=== PATIENT | female | born 1955 | race African-American/Black ===

== ENCOUNTER 2020-10-02 22:06 | Inpatient (IN) | payer MEDICAID, OTHER ==
[~2020-10-02] VITALS: Ht 167.6 cm; Wt 69.9 kg
[~2020-10-02 22:06] MED LIST: AMLO10TA4 PO; ASCO500C6 PO; CLAR10 PO; CLIN300C12 PO; DIAZ10TA PO; DOCU-138 PO; FERR-63 PO; GABA-529 PO; HYDR-523 PO; LORA10TA7 PO; LOSA50TA3 PO; LOV40 SUBCUT; METO-385 PO; MULT-1146 PO; ONDA4TAB5 PO; TOPUD PO; flexeril PO; haldol PO
[2020-10-02] MEDS ORDERED: ACETAMINOPHEN 325MG TABLET PO ONE (22:30)
[2020-10-02 23:56] LABS: BASOPHILS % 0.1 % (0.0-2.0); EOSINOPHILS % 0.2 % (0.0-5.0); HEMOGLOBIN. 9.4 g/dL (12.0-16.0); INR 1.2; LYMPHOCYTES % 16.2 % (20.0-50.0); MEAN CORPUSCULAR HEMOGLOBIN 21.5 pg (28.0-32.0); MEAN CORPUSCULAR VOLUME 73.2 fL (81.0-99.0); MEAN PLATELET VOLUME 7.1 fl (7.4-10.4); MONOCYTES % 7.2 % (2.0-8.0); NEUTROPHILS % 76.3 % (40.0-76.0); PLATELET 916 x1000/uL (130-400); PROTHROMBIN TIME 12.3 sec (9.6-11.0); RED BLOOD CELL COUNT 4.37 mill/uL (4.2-5.4); RED CELL DISTRIBUTION WIDTH 17.8 % (11.6-14.6)
[2020-10-02 23:59] LABS: CHLORIDE 107 mEq/L (98-107)
[2020-10-03] MEDS ORDERED: SODIUM CHLORIDE 0.9% 1,000 ML IV ONE
[2020-10-03] MEDS ORDERED: HYDROCODONE/ACETAMINOPHEN 5/325MG TABLET PO ONE
[2020-10-03 00:55] LABS: CREATINE KINASE 321 IU/L (26-192)
[2020-10-03] MEDS ORDERED: POTASSIUM CHLORIDE 20MEQ TABLET SR PO ONE (01:30)
[2020-10-03] MEDS ORDERED: ONDANSETRON HCL 4MG/2ML INJ IV STA (01:32)
[2020-10-03] MEDS ORDERED: MORPHINE SULFATE 4 MG/ML CPJ (NOT FOR IM USE) IV STA (01:32)
[2020-10-03 04:00] VITALS: BP 125/53
[2020-10-03 04:19] LABS: CLARITY URINE CLEAR (CLEAR); COLOR URINE YELLOW (YELLOW); KETONES URINE 1+ (NEGATIVE); LEUKOCYTE ESTERASE URINE NEGATIVE (NEGATIVE); NITRITE URINE NEGATIVE (NEGATIVE); OCCULT BLOOD URINE NEGATIVE (NEGATIVE); PH URINE 6.5 (4.5-8.0); PROTEIN URINE TRACE (NEGATIVE); SPECIFIC GRAVITY URINE 1.022 (1.005-1.030)
[2020-10-03 04:30] VITALS: BP 125/53
[2020-10-03] MEDS ORDERED: HALOPERIDOL 5MG TABLET PO PRN (05:30)
[2020-10-03] MEDS ORDERED: HYDROCODONE/ACETAMINOPHEN 5/325MG TABLET PO PRN (05:30)
[2020-10-03] MEDS: SODIUM CHLORIDE 0.9% 1,000 ML IV SCH ×3 (06:18→22:00)
[2020-10-03 08:00] VITALS: BP 132/61
[2020-10-03] MEDS ORDERED: PNEUMOCOCCAL 23-VAL P-SAC VAC 0.5 ML IM ONE (08:00)
[2020-10-03 08:43] LABS: BASOPHILS % 0.3 % (0.0-2.0); EOSINOPHILS % 0.6 % (0.0-5.0); HEMATOCRIT. 26.3 % (36.0-48.0); LYMPHOCYTES % 19.4 % (20.0-50.0); MEAN CORPUSCULAR HEMOGLOBIN 22.5 pg (28.0-32.0); MEAN CORPUSCULAR VOLUME 73.6 fL (81.0-99.0); MEAN PLATELET VOLUME 6.6 fl (7.4-10.4); MONOCYTES % 10.3 % (2.0-8.0); NEUTROPHILS % 69.4 % (40.0-76.0); PLATELET 801 x1000/uL (130-400); RED BLOOD CELL COUNT 3.57 mill/uL (4.2-5.4); RED CELL DISTRIBUTION WIDTH 17.9 % (11.6-14.6)
[2020-10-03 08:56] LABS: CHLORIDE 111 mEq/L (98-107)
[2020-10-03] MEDS: LOSARTAN POTASSIUM 50 MG TABLET PO SCH (09:00)
[2020-10-03] MEDS: MULTIVITAMINS,THER W-MINERALS TABLET PO SCH (09:00)
[2020-10-03] MEDS ORDERED: CLINDAMYCIN HCL 150MG CAPSULE PO SCH (09:00)
[2020-10-03] MEDS: DOCUSATE SODIUM 100MG CAPSULE PO SCH (09:05)
[2020-10-03] MEDS: ASCORBIC ACID 500 MG TABLET PO SCH (09:05)
[2020-10-03] MEDS: FERROUS SULFATE 325MG TABLET PO SCH ×3 (09:05→17:14)
[2020-10-03] MEDS: GABAPENTIN 100MG CAPSULE PO SCH (09:06)
[2020-10-03] MEDS: AMLODIPINE 10MG TABLET PO SCH (09:06)
[2020-10-03] MEDS: CYCLOBENZAPRINE 10MG TABLET PO SCH (09:06)
[2020-10-03] MEDS: LORATADINE 10MG TABLET PO SCH (09:07)
[2020-10-03] MEDS: ONDANSETRON 4MG ODT PO PRN (11:02)
[2020-10-03] MEDS: MORPHINE SULFATE 2 MG/ML CPJ (NOT FOR IM USE) IV PRN ×3 (11:03→21:20)
[2020-10-03 12:00] VITALS: BP 117/51
[2020-10-03 16:00] VITALS: BP 125/67
[2020-10-03] MEDS: DOXYCYCLINE HYCLATE 100MG CAPSULE PO SCH (17:14)
[2020-10-03] MEDS: CALCIUM CARBONATE/VITAMIN D3 500MG TABLET PO SCH (17:14)
[2020-10-03] MEDS: CALCITONIN,SALMON, 3.7 ML NASAL SPRAY ONENSTRL SCH (18:53)
[2020-10-03 20:00] VITALS: BP 110/41
[2020-10-03] MEDS ORDERED: DIAZEPAM 5 MG TABLET PO PRN (21:00)
[2020-10-03] MEDS: ACETAMINOPHEN 325MG TABLET PO PRN (21:07)
[2020-10-04] VITALS: BP 110/45
[2020-10-04] MEDS: MORPHINE SULFATE 2 MG/ML CPJ (NOT FOR IM USE) IV PRN ×4 (01:22→19:57)
[2020-10-04] MEDS: ONDANSETRON 4MG ODT PO PRN (02:32)
[2020-10-04 04:00] VITALS: BP 119/58
[2020-10-04] MEDS: SODIUM CHLORIDE 0.9% 1,000 ML IV SCH ×2 (06:00→13:18)
[2020-10-04 07:01] LABS: BASOPHILS % 0.3 % (0.0-2.0); EOSINOPHILS % 1.9 % (0.0-5.0); HEMATOCRIT. 28.4 % (36.0-48.0); HEMOGLOBIN. 8.5 g/dL (12.0-16.0); LYMPHOCYTES % 21.6 % (20.0-50.0); MEAN CORPUSCULAR HEMOGLOBIN 22.3 pg (28.0-32.0); MEAN CORPUSCULAR VOLUME 74.5 fL (81.0-99.0); MONOCYTES % 12.5 % (2.0-8.0); NEUTROPHILS % 63.7 % (40.0-76.0); PLATELET 774 x1000/uL (130-400); RED BLOOD CELL COUNT 3.81 mill/uL (4.2-5.4); RED CELL DISTRIBUTION WIDTH 18.1 % (11.6-14.6)
[2020-10-04 07:18] LABS: CHLORIDE 108 mEq/L (98-107)
[2020-10-04 08:00] VITALS: BP 130/50
[2020-10-04] MEDS: CALCIUM CARBONATE/VITAMIN D3 500MG TABLET PO SCH ×2 (08:58→17:45)
[2020-10-04] MEDS: DOXYCYCLINE HYCLATE 100MG CAPSULE PO SCH ×2 (08:58→17:45)
[2020-10-04] MEDS: FERROUS SULFATE 325MG TABLET PO SCH ×3 (08:58→17:45)
[2020-10-04] MEDS: AMLODIPINE 10MG TABLET PO SCH (08:59)
[2020-10-04] MEDS: GABAPENTIN 100MG CAPSULE PO SCH (08:59)
[2020-10-04] MEDS: CYCLOBENZAPRINE 10MG TABLET PO SCH (08:59)
[2020-10-04] MEDS: ASCORBIC ACID 500 MG TABLET PO SCH (08:59)
[2020-10-04] MEDS: LORATADINE 10MG TABLET PO SCH (08:59)
[2020-10-04] MEDS: DOCUSATE SODIUM 100MG CAPSULE PO SCH (08:59)
[2020-10-04] MEDS: LOSARTAN POTASSIUM 50 MG TABLET PO SCH (09:00)
[2020-10-04] MEDS: CALCITONIN,SALMON, 3.7 ML NASAL SPRAY ONENSTRL SCH (09:00)
[2020-10-04] MEDS: MULTIVITAMINS,THER W-MINERALS TABLET PO SCH (09:02)
[2020-10-04 11:56] VITALS: BP 103/51
[2020-10-04] MEDS ORDERED: POTASSIUM CHLORIDE 20MEQ TABLET SR PO NR (12:45)
[2020-10-04 16:00] VITALS: BP 111/56
[2020-10-04 20:00] VITALS: BP 119/53
[2020-10-04] MEDS ORDERED: LACTULOSE 20G/30ML UDC PO SCH (22:00)
[2020-10-04] MEDS ORDERED: LACTULOSE 20G/30ML UDC PO PRN (22:45)
[2020-10-04] MEDS: HYDROCODONE/ACETAMINOPHEN 5/325MG TABLET PO PRN (22:45)
[2020-10-05] VITALS: BP 121/55
[2020-10-05] MEDS: MORPHINE SULFATE 2 MG/ML CPJ (NOT FOR IM USE) IV PRN ×3 (03:57→16:26)
[2020-10-05 04:00] VITALS: BP 125/54
[2020-10-05 06:34] LABS: CHLORIDE 105 mEq/L (98-107)
[2020-10-05] MEDS: HYDROCODONE/ACETAMINOPHEN 5/325MG TABLET PO PRN ×3 (07:00→20:59)
[2020-10-05 08:00] VITALS: BP 121/54
[2020-10-05] MEDS: CYCLOBENZAPRINE 10MG TABLET PO SCH (08:43)
[2020-10-05] MEDS: DOXYCYCLINE HYCLATE 100MG CAPSULE PO SCH ×2 (08:43→17:59)
[2020-10-05] MEDS: GABAPENTIN 100MG CAPSULE PO SCH (08:43)
[2020-10-05] MEDS: CALCITONIN,SALMON, 3.7 ML NASAL SPRAY ONENSTRL SCH (08:43)
[2020-10-05] MEDS: LOSARTAN POTASSIUM 50 MG TABLET PO SCH (08:44)
[2020-10-05] MEDS: LORATADINE 10MG TABLET PO SCH (08:44)
[2020-10-05] MEDS: AMLODIPINE 10MG TABLET PO SCH (08:44)
[2020-10-05] MEDS: DOCUSATE SODIUM 100MG CAPSULE PO SCH (08:44)
[2020-10-05] MEDS: ASCORBIC ACID 500 MG TABLET PO SCH (08:44)
[2020-10-05] MEDS: FERROUS SULFATE 325MG TABLET PO SCH ×3 (08:44→17:59)
[2020-10-05] MEDS: CALCIUM CARBONATE/VITAMIN D3 500MG TABLET PO SCH ×2 (08:44→17:59)
[2020-10-05] MEDS: MULTIVITAMINS,THER W-MINERALS TABLET PO SCH (08:45)
[2020-10-05 12:00] VITALS: BP 108/48
[2020-10-05 16:00] VITALS: BP 110/51
[2020-10-05] MEDS: DEXAMETHASONE 4MG/ML 1ML VIAL IV SCH (17:59)
[2020-10-05 20:00] VITALS: BP 119/53
[2020-10-06] VITALS (41 sets, daily range): BP systolic 69–163; BP diastolic 19–80
[2020-10-06] MEDS: MORPHINE SULFATE 2 MG/ML CPJ (NOT FOR IM USE) IV PRN (00:18)
[2020-10-06] MEDS: DEXAMETHASONE 4MG/ML 1ML VIAL IV SCH ×4 (00:18→17:41)
[2020-10-06] MEDS: HYDROCODONE/ACETAMINOPHEN 5/325MG TABLET PO PRN ×3 (04:09→21:51)
[2020-10-06 05:48] LABS: BASOPHILS % 0.2 % (0.0-2.0); HEMOGLOBIN. 8.4 g/dL (12.0-16.0); LYMPHOCYTES % 8.7 % (20.0-50.0); MEAN CORPUSCULAR HEMOGLOBIN 23.4 pg (28.0-32.0); MEAN CORPUSCULAR VOLUME 72.1 fL (81.0-99.0); MEAN PLATELET VOLUME 6.9 fl (7.4-10.4); MONOCYTES % 1.6 % (2.0-8.0); NEUTROPHILS % 89.5 % (40.0-76.0); PLATELET 737 x1000/uL (130-400); RED BLOOD CELL COUNT 3.61 mill/uL (4.2-5.4); RED CELL DISTRIBUTION WIDTH 17.7 % (11.6-14.6)
[2020-10-06 05:57] LABS: CHLORIDE 103 mEq/L (98-107)
[2020-10-06] MEDS ORDERED: THROMBIN (BOVINE) 5000 UNITS/VIAL TOP ONE ×2 (06:23→06:24)
[2020-10-06] MEDS ORDERED: BACITRACIN 50,000 UNITS/VIAL ONE (06:24)
[2020-10-06] MEDS ORDERED: ROCURONIUM BROMIDE 10MG/ML VIAL 5ML IV ONE (07:11)
[2020-10-06] MEDS ORDERED: PROPOFOL 200MG/20ML VIAL IV ONE ×2 (07:11→09:28)
[2020-10-06] MEDS ORDERED: MIDAZOLAM HCL 2 MG/2 ML VIAL ONE (07:11)
[2020-10-06] MEDS ORDERED: NEOSTIGMINE METHYLSULFATE 1MG/ML 10 ML VIAL ONE (07:11)
[2020-10-06] MEDS ORDERED: FENTANYL CITRATE/PF 50MCG/ML 2ML VIAL ONE (07:11)
[2020-10-06] MEDS ORDERED: GLYCOPYRROLATE 0.2 MG/ML 2ML VIAL ONE (07:12)
[2020-10-06] MEDS: FERROUS SULFATE 325MG TABLET PO SCH ×3 (07:50→16:13)
[2020-10-06] MEDS: LORATADINE 10MG TABLET PO SCH (08:17)
[2020-10-06] MEDS: DEXT 5%/LACTATED RINGERS 1,000 ML IV SCH ×2 (08:17→21:56)
[2020-10-06] MEDS: CALCITONIN,SALMON, 3.7 ML NASAL SPRAY ONENSTRL SCH (08:17)
[2020-10-06] MEDS: CALCIUM CARBONATE/VITAMIN D3 500MG TABLET PO SCH ×2 (08:18→16:13)
[2020-10-06] MEDS: CYCLOBENZAPRINE 10MG TABLET PO SCH (08:18)
[2020-10-06] MEDS: AMLODIPINE 10MG TABLET PO SCH (08:18)
[2020-10-06] MEDS: DOCUSATE SODIUM 100MG CAPSULE PO SCH (08:18)
[2020-10-06] MEDS: MULTIVITAMINS,THER W-MINERALS TABLET PO SCH (08:18)
[2020-10-06] MEDS: GABAPENTIN 100MG CAPSULE PO SCH (08:18)
[2020-10-06] MEDS: LOSARTAN POTASSIUM 50 MG TABLET PO SCH (08:18)
[2020-10-06] MEDS: ASCORBIC ACID 500 MG TABLET PO SCH (08:19)
[2020-10-06] MEDS: DOXYCYCLINE HYCLATE 100MG CAPSULE PO SCH ×2 (08:19→17:41)
[2020-10-06] MEDS ORDERED: DEXAMETHASONE 4MG/ML 1ML VIAL ONE (08:41)
[2020-10-06] MEDS ORDERED: HYDROMORPHONE HCL/PF 2MG/ML (OR) ONE (08:44)
[2020-10-06] MEDS ORDERED: HYDRALAZINE 20MG/ML VIAL ONE (09:45)
[2020-10-06] MEDS ORDERED: MEPERIDINE HCL/PF 25MG/ML CPJ IV PRN (09:45)
[2020-10-06] MEDS ORDERED: HYDROMORPHONE HCL/PF 2MG/ML CPJ IV PRN (09:45)
[2020-10-06] MEDS ORDERED: LABETALOL 5MG/ML SYR 20 MG/4 ML SYRINGE IV PRN (09:45)
[2020-10-06] MEDS ORDERED: LIDOCAINE HCL/PF 1% 10 MG/ML 5ML VIAL ONE (09:45)
[2020-10-06] MEDS ORDERED: ONDANSETRON HCL 4MG/2ML INJ IV PRN (09:45)
[2020-10-06] MEDS ORDERED: SODIUM CHLORIDE 0.9% 10ML VIAL ONE (09:46)
[2020-10-06] MEDS ORDERED: CEFAZOLIN SODIUM 1000MG/VIAL ONE (09:46)
[2020-10-06] MEDS ORDERED: LABETALOL HCL 5MG/ML VIAL 20ML IV ONE (09:46)
[2020-10-06] MEDS: MORPHINE SULFATE 4 MG/ML CPJ (NOT FOR IM USE) IV PRN (11:55)
[2020-10-06] MEDS ORDERED: ONDANSETRON INJ IV PRN (12:45)
[2020-10-06] MEDS ORDERED: DIPHENHYDRAMINE INJ IV PRN (12:45)
[2020-10-06] MEDS ORDERED: NALOXONE INJ IV PRN (12:45)
[2020-10-06] MEDS ORDERED: CEFAZOLIN SODIUM 1000MG/VIAL IV SCH (14:00)
[2020-10-06] MEDS: CEFAZOLIN 1000MG PREMIX 50 ML IV SCH ×2 (14:10→21:52)
[2020-10-06] MEDS: NICARDIPINE 100 MG in SODIUM CHLORIDE 0.9% 60 ML IV PRN (14:12)
[2020-10-07] VITALS (82 sets, daily range): BP systolic 69–227; BP diastolic 16–129
[2020-10-07] MEDS: DEXAMETHASONE 4MG/ML 1ML VIAL IV SCH ×4 (00:05→16:56)
[2020-10-07] MEDS: MORPHINE SULFATE 4 MG/ML CPJ (NOT FOR IM USE) IV PRN ×4 (00:06→12:59)
[2020-10-07] MEDS: HYDROCODONE/ACETAMINOPHEN 5/325MG TABLET PO PRN ×2 (02:43→20:15)
[2020-10-07 05:36] LABS: HEMATOCRIT. 23.2 % (36.0-48.0); HEMOGLOBIN. 7.4 g/dL (12.0-16.0); MEAN CORPUSCULAR HEMOGLOBIN 23.2 pg (28.0-32.0); MEAN CORPUSCULAR VOLUME 73.1 fL (81.0-99.0); MEAN PLATELET VOLUME 7.1 fl (7.4-10.4); PLATELET 744 x1000/uL (130-400); RED BLOOD CELL COUNT 3.17 mill/uL (4.2-5.4); RED CELL DISTRIBUTION WIDTH 17.5 % (11.6-14.6)
[2020-10-07 05:43] LABS: CHLORIDE 103 mEq/L (98-107)
[2020-10-07] MEDS: CEFAZOLIN 1000MG PREMIX 50 ML IV SCH ×3 (06:09→21:26)
[2020-10-07] MEDS: LORATADINE 10MG TABLET PO SCH (08:37)
[2020-10-07] MEDS: LOSARTAN POTASSIUM 50 MG TABLET PO SCH ×2 (08:37→09:00)
[2020-10-07] MEDS: AMLODIPINE 10MG TABLET PO SCH (08:37)
[2020-10-07] MEDS: DOCUSATE SODIUM 100MG CAPSULE PO SCH (08:37)
[2020-10-07] MEDS: CALCITONIN,SALMON, 3.7 ML NASAL SPRAY ONENSTRL SCH (08:38)
[2020-10-07] MEDS: CYCLOBENZAPRINE 10MG TABLET PO SCH (08:38)
[2020-10-07] MEDS: FERROUS SULFATE 325MG TABLET PO SCH ×3 (08:38→16:56)
[2020-10-07] MEDS: DOXYCYCLINE HYCLATE 100MG CAPSULE PO SCH ×2 (08:38→16:57)
[2020-10-07] MEDS: MULTIVITAMINS,THER W-MINERALS TABLET PO SCH (08:38)
[2020-10-07] MEDS: CALCIUM CARBONATE/VITAMIN D3 500MG TABLET PO SCH ×2 (08:38→16:56)
[2020-10-07] MEDS: DEXT 5%/LACTATED RINGERS 1,000 ML IV SCH ×2 (08:42→16:57)
[2020-10-07] MEDS: GABAPENTIN 100MG CAPSULE PO SCH (08:45)
[2020-10-07] MEDS: ASCORBIC ACID 500 MG TABLET PO SCH (08:45)
[2020-10-07 10:29] LABS: PLATELET ESTIMATE INCREASED
[2020-10-07] MEDS: HYDROMORPHONE PCA 10MG/50ML IV PRN (13:39)
[2020-10-08] VITALS (97 sets, daily range): BP systolic 64–157; BP diastolic 26–96
[2020-10-08] MEDS: DEXT 5%/LACTATED RINGERS 1,000 ML IV SCH ×3 (00:07→20:37)
[2020-10-08] MEDS: HYDROCODONE/ACETAMINOPHEN 5/325MG TABLET PO PRN ×5 (01:13→20:14)
[2020-10-08] MEDS: MORPHINE SULFATE 4 MG/ML CPJ (NOT FOR IM USE) IV PRN ×4 (02:53→18:14)
[2020-10-08] MEDS: NICARDIPINE 100 MG in SODIUM CHLORIDE 0.9% 60 ML IV PRN (06:03)
[2020-10-08] MEDS: CEFAZOLIN 1000MG PREMIX 50 ML IV SCH ×2 (06:03→13:52)
[2020-10-08] MEDS: FERROUS SULFATE 325MG TABLET PO SCH ×3 (07:58→16:08)
[2020-10-08] MEDS: MULTIVITAMINS,THER W-MINERALS TABLET PO SCH (09:33)
[2020-10-08] MEDS: CYCLOBENZAPRINE 10MG TABLET PO SCH (09:33)
[2020-10-08] MEDS: DOCUSATE SODIUM 100MG CAPSULE PO SCH (09:33)
[2020-10-08] MEDS: CALCIUM CARBONATE/VITAMIN D3 500MG TABLET PO SCH ×2 (09:34→16:08)
[2020-10-08] MEDS: LOSARTAN POTASSIUM 50 MG TABLET PO SCH (09:34)
[2020-10-08] MEDS: GABAPENTIN 100MG CAPSULE PO SCH (09:34)
[2020-10-08] MEDS: ASCORBIC ACID 500 MG TABLET PO SCH (09:34)
[2020-10-08] MEDS: AMLODIPINE 10MG TABLET PO SCH (09:34)
[2020-10-08] MEDS: LORATADINE 10MG TABLET PO SCH (09:34)
[2020-10-08] MEDS: DOXYCYCLINE HYCLATE 100MG CAPSULE PO SCH ×2 (09:35→16:08)
[2020-10-08] MEDS ORDERED: CLONIDINE 0.1MG TABLET PO PRN (10:30)
[2020-10-08] MEDS: CALCITONIN,SALMON, 3.7 ML NASAL SPRAY ONENSTRL SCH (13:44)
[2020-10-08] MEDS: HYDROMORPHONE PCA 10MG/50ML IV PRN (16:43)
[2020-10-09] VITALS (47 sets, daily range): BP systolic 92–162; BP diastolic 42–80
[2020-10-09] MEDS: DEXT 5%/LACTATED RINGERS 1,000 ML IV SCH (07:00)
[2020-10-09] MEDS: MULTIVITAMINS,THER W-MINERALS TABLET PO SCH (08:59)
[2020-10-09] MEDS: HYDROCODONE/ACETAMINOPHEN 5/325MG TABLET PO PRN ×3 (09:00→20:20)
[2020-10-09] MEDS: CYCLOBENZAPRINE 10MG TABLET PO SCH (09:00)
[2020-10-09] MEDS: LOSARTAN POTASSIUM 50 MG TABLET PO SCH (09:00)
[2020-10-09] MEDS: ASCORBIC ACID 500 MG TABLET PO SCH (09:01)
[2020-10-09] MEDS: AMLODIPINE 10MG TABLET PO SCH (09:01)
[2020-10-09] MEDS: LORATADINE 10MG TABLET PO SCH (09:01)
[2020-10-09] MEDS: FERROUS SULFATE 325MG TABLET PO SCH ×3 (09:01→18:23)
[2020-10-09] MEDS: GABAPENTIN 100MG CAPSULE PO SCH (09:01)
[2020-10-09] MEDS: CALCIUM CARBONATE/VITAMIN D3 500MG TABLET PO SCH ×2 (09:01→16:11)
[2020-10-09] MEDS: DOCUSATE SODIUM 100MG CAPSULE PO SCH (09:01)
[2020-10-09] MEDS: CALCITONIN,SALMON, 3.7 ML NASAL SPRAY ONENSTRL SCH (10:00)
[2020-10-09] MEDS ORDERED: MORPHINE SULFATE 2 MG/ML CPJ (NOT FOR IM USE) IV PRN (14:00)
[2020-10-09] MEDS: ACETAMINOPHEN 325MG TABLET PO PRN (18:23)
[2020-10-09] MEDS: MORPHINE SULFATE 2 MG/ML CPJ (NOT FOR IM USE) IV PRN (23:06)
[2020-10-10] VITALS: BP 105/48
[2020-10-10] MEDS: HYDROCODONE/ACETAMINOPHEN 5/325MG TABLET PO PRN ×5 (01:30→18:24)
[2020-10-10] MEDS: MORPHINE SULFATE 2 MG/ML CPJ (NOT FOR IM USE) IV PRN ×4 (03:13→21:32)
[2020-10-10 04:00] VITALS: BP 107/47
[2020-10-10 07:13] LABS: BASOPHILS % 0.2 % (0.0-2.0); EOSINOPHILS % 1.8 % (0.0-5.0); HEMATOCRIT. 26.6 % (36.0-48.0); HEMOGLOBIN. 8.3 g/dL (12.0-16.0); LYMPHOCYTES % 18.4 % (20.0-50.0); MEAN CORPUSCULAR HEMOGLOBIN 22.9 pg (28.0-32.0); MEAN CORPUSCULAR VOLUME 73.6 fL (81.0-99.0); MEAN PLATELET VOLUME 7.1 fl (7.4-10.4); MONOCYTES % 14.6 % (2.0-8.0); PLATELET 755 x1000/uL (130-400); RED BLOOD CELL COUNT 3.62 mill/uL (4.2-5.4); RED CELL DISTRIBUTION WIDTH 18.3 % (11.6-14.6)
[2020-10-10 08:00] VITALS: BP 110/56
[2020-10-10] MEDS: FERROUS SULFATE 325MG TABLET PO SCH ×3 (08:43→16:59)
[2020-10-10] MEDS: LORATADINE 10MG TABLET PO SCH (08:43)
[2020-10-10] MEDS: DOCUSATE SODIUM 100MG CAPSULE PO SCH (08:43)
[2020-10-10] MEDS: MULTIVITAMINS,THER W-MINERALS TABLET PO SCH (08:43)
[2020-10-10] MEDS: GABAPENTIN 100MG CAPSULE PO SCH (08:43)
[2020-10-10] MEDS: CYCLOBENZAPRINE 10MG TABLET PO SCH (08:43)
[2020-10-10] MEDS: CALCIUM CARBONATE/VITAMIN D3 500MG TABLET PO SCH ×2 (08:43→16:50)
[2020-10-10] MEDS: CALCITONIN,SALMON, 3.7 ML NASAL SPRAY ONENSTRL SCH (08:43)
[2020-10-10] MEDS: ASCORBIC ACID 500 MG TABLET PO SCH (08:43)
[2020-10-10] MEDS: AMLODIPINE 10MG TABLET PO SCH (09:00)
[2020-10-10] MEDS: LOSARTAN POTASSIUM 50 MG TABLET PO SCH (09:00)
[2020-10-10 14:07] VITALS: BP 102/52
[2020-10-10 16:00] VITALS: BP 109/69
[2020-10-10] MEDS: ACETAMINOPHEN 325MG TABLET PO PRN (16:51)
[2020-10-10 20:00] VITALS: BP 113/40
[2020-10-11] VITALS: BP 116/72
[2020-10-11 04:00] VITALS: BP 134/62
[2020-10-11] MEDS: MORPHINE SULFATE 2 MG/ML CPJ (NOT FOR IM USE) IV PRN ×3 (04:35→16:30)
[2020-10-11] MEDS: GABAPENTIN 100MG CAPSULE PO SCH (09:06)
[2020-10-11] MEDS: MULTIVITAMINS,THER W-MINERALS TABLET PO SCH (09:06)
[2020-10-11] MEDS: DOCUSATE SODIUM 100MG CAPSULE PO SCH (09:06)
[2020-10-11] MEDS: HYDROCODONE/ACETAMINOPHEN 5/325MG TABLET PO PRN ×2 (09:06→18:51)
[2020-10-11] MEDS: CALCIUM CARBONATE/VITAMIN D3 500MG TABLET PO SCH ×2 (09:06→16:57)
[2020-10-11] MEDS: CYCLOBENZAPRINE 10MG TABLET PO SCH (09:06)
[2020-10-11] MEDS: LOSARTAN POTASSIUM 50 MG TABLET PO SCH (09:07)
[2020-10-11] MEDS: ASCORBIC ACID 500 MG TABLET PO SCH (09:07)
[2020-10-11] MEDS: LORATADINE 10MG TABLET PO SCH (09:07)
[2020-10-11] MEDS: AMLODIPINE 10MG TABLET PO SCH (09:07)
[2020-10-11] MEDS: FERROUS SULFATE 325MG TABLET PO SCH ×3 (09:07→16:57)
[2020-10-11] MEDS: CALCITONIN,SALMON, 3.7 ML NASAL SPRAY ONENSTRL SCH (09:08)
[2020-10-11 16:00] VITALS: BP 134/78
[2020-10-11 17:07] VITALS: BP 127/74
[2020-10-11 18:51] VITALS: BP 134/74
== END 2020-10-11 19:07 | DRG 321 ==
LOC: ER 22:06 → 6EST 10-03 03:17 → ENRESERV 10-03 03:31 → MICUSO 10-06 11:51 → 6EST 10-09 12:00
PROVIDERS: ADMIT Internal Medicine; ATTEND Internal Medicine
PROC: 0RG20J1 Fusion of 2 or more Cervical Vertebral Joints with Synthetic Substitute, Posterior Approach, Posterior Column, Open Approach (ICD-10-PCS; principal; 2020-10-06)
PROC: 00NW0ZZ Release Cervical Spinal Cord, Open Approach (ICD-10-PCS; 2020-10-06)
DX: M48.02 Spinal stenosis, cervical region (principal); G82.50 Quadriplegia, unspecified; G99.2 Myelopathy in diseases classified elsewhere; M62.82 Rhabdomyolysis; S32.020A Wedge compression fracture of second lumbar vertebra, initial encounter for closed fracture; F20.9 Schizophrenia, unspecified; G62.9 Polyneuropathy, unspecified; M16.11 Unilateral primary osteoarthritis, right hip; M48.061 Spinal stenosis, lumbar region without neurogenic claudication; M54.12 Radiculopathy, cervical region; I10 Essential (primary) hypertension; E78.5 Hyperlipidemia, unspecified; E87.6 Hypokalemia; Z96.642 Presence of left artificial hip joint; J43.9 Emphysema, unspecified; D72.829 Elevated white blood cell count, unspecified; E78.00 Pure hypercholesterolemia, unspecified; M51.36 Other intervertebral disc degeneration, lumbar region; Z20.822 Contact with and (suspected) exposure to COVID-19; M54.16 Radiculopathy, lumbar region; M48.04 Spinal stenosis, thoracic region; R13.10 Dysphagia, unspecified; G89.29 Other chronic pain; M41.86 Other forms of scoliosis, lumbar region; Z88.8 Allergy status to other drugs, medicaments and biological substances; Z91.041 Radiographic dye allergy status; Z79.1 Long term (current) use of non-steroidal anti-inflammatories (NSAID); Z79.899 Other long term (current) drug therapy; Z83.3 Family history of diabetes mellitus
CPT/HCPCS: 36415; 71045; 72040; 72128; 72131; 72141; 72148; 72170; 72192; 73562; 73630; 76000; 80048; 80053; 81003; 82550; 82962; 83605; 84145; 84443; 85025; 86850; 86870; 86900; 86920; 87426; 92610; 93005; 93306; 93970; 95925; 95926; 95928; 95929; 95940; 97110; 97116; 97162; 97164; 97166; 97168; 97530; 97535; 99285; C1713; C1893; J0360; J0690; J1100; J1170; J1200; J2250; J2270; J2405; J2704; J2710; J3010; J3490; J7030; J7040; J7050; J7121; Q0162; A4315

== ENCOUNTER 2021-11-21 12:13 | Inpatient (IN) | payer MEDICARE, OTHER ==
[~2021-11-21] VITALS: Ht 165.1 cm; Wt 60.0 kg
[~2021-11-21 12:13] MED LIST changes: +CLIN-194 PO; -CLIN300C12 PO; +ENOX40SY27 SUBCUT; -LOV40 SUBCUT
[2021-11-21 16:39] LABS: BASOPHILS % 0.5 % (0.0-2.0); HEMATOCRIT. 27.3 % (36.0-48.0); HEMOGLOBIN. 8.8 g/dL (12.0-16.0); LYMPHOCYTES % 22.3 % (20.0-50.0); MEAN CORPUSCULAR HEMOGLOBIN 24.8 pg (28.0-32.0); MEAN PLATELET VOLUME 6.8 fl (7.4-10.4); MONOCYTES % 9.6 % (2.0-8.0); NEUTROPHILS % 66.6 % (40.0-76.0); PLATELET 864 x1000/uL (130-400); RED BLOOD CELL COUNT 3.54 mill/uL (4.2-5.4)
[2021-11-21 16:48] LABS: CHLORIDE 107 mEq/L (98-107)
[2021-11-21 16:52] LABS: HCG SCREEN NEGATIVE
[2021-11-21 16:57] LABS: ETHANOL BLOOD < 10 mg/dL
[2021-11-21] MEDS: POTASSIUM CHLORIDE 20MEQ TABLET SR PO NR ×2 (19:52→19:59)
[2021-11-22 11:17] LABS: *AMPHETAMINES SCREEN URINE NEGATIVE (NEGATIVE); *BARBITURATES SCREEN URINE NEGATIVE (NEGATIVE); *BENZODIAZEPINES SCREEN URINE NEGATIVE (NEGATIVE); *COCAINE SCREEN URINE NEGATIVE (NEGATIVE); CANNABINOID URINE SCREEN NEGATIVE (NEGATIVE); METHADONE URINE SCREEN NEGATIVE (NEGATIVE); OPIATES URINE SCREEN PRESUMTIVE POSITIVE (NEGATIVE); PHENCYCLIDINE URINE SCREEN NEGATIVE (NEGATIVE)
[2021-11-22 11:24] LABS: CLARITY URINE CLEAR (CLEAR); COLOR URINE YELLOW (YELLOW); KETONES URINE TRACE (NEGATIVE); LEUKOCYTE ESTERASE URINE 2+ (NEGATIVE); NITRITE URINE NEGATIVE (NEGATIVE); OCCULT BLOOD URINE NEGATIVE (NEGATIVE); PH URINE 7.5 (4.5-8.0); PROTEIN URINE 1+ (NEGATIVE); SPECIFIC GRAVITY URINE 1.024 (1.005-1.030); UROBILINOGEN URINE 0.2 E.U./dL (0.2-1.0)
[2021-11-22] MEDS ORDERED: POTASSIUM CHLORIDE 20MEQ/PACKET PO ONE (11:30)
[2021-11-22] MEDS: RISPERIDONE 0.5MG TABLET PO SCH ×2 (12:52→21:00)
[2021-11-22] MEDS ORDERED: HALOPERIDOL LACTATE 5MG/ML VIAL IM NR (17:30)
[2021-11-22] MEDS ORDERED: LORAZEPAM 2MG/ML CPJ IM NR (17:30)
[2021-11-23] MEDS: RISPERIDONE 0.5MG TABLET PO SCH ×2 (08:43→21:00)
[2021-11-23] MEDS ORDERED: ACETAMINOPHEN 325MG TABLET PO ONE (19:45)
[2021-11-23] MEDS ORDERED: ACETAMINOPHEN 325MG TABLET PO NR (23:00)
[2021-11-24] MEDS: RISPERIDONE 0.5MG TABLET PO SCH ×2 (08:24→21:02)
[2021-11-24 13:35] LABS: BASOPHILS % 0.1 % (0.0-2.0); EOSINOPHILS % 0.8 % (0.0-5.0); HEMATOCRIT. 24.2 % (36.0-48.0); HEMOGLOBIN. 7.5 g/dL (12.0-16.0); LYMPHOCYTES % 17.7 % (20.0-50.0); MEAN CORPUSCULAR HEMOGLOBIN 23.6 pg (28.0-32.0); MEAN PLATELET VOLUME 6.7 fl (7.4-10.4); MONOCYTES % 11.7 % (2.0-8.0); NEUTROPHILS % 69.7 % (40.0-76.0); PLATELET 775 x1000/uL (130-400); RED BLOOD CELL COUNT 3.19 mill/uL (4.2-5.4); RED CELL DISTRIBUTION WIDTH 17.7 % (11.6-14.6)
[2021-11-25] MEDS: RISPERIDONE 0.5MG TABLET PO SCH ×2 (09:00→21:00)
[2021-11-25] MEDS ORDERED: ACETAMINOPHEN 325MG TABLET PO ONE (10:15)
[2021-11-25] MEDS ORDERED: LORAZEPAM 1MG TABLET PO ONE (14:45)
[2021-11-26] MEDS: RISPERIDONE 1MG TABLET PO SCH ×2 (09:00→21:20)
[2021-11-27] MEDS ORDERED: LORAZEPAM 1MG TABLET PO NR (03:15)
[2021-11-27] MEDS: RISPERIDONE 1MG TABLET PO SCH ×2 (09:00→09:51)
[2021-11-27 12:33] LABS: BASOPHILS % 0.3 % (0.0-2.0); EOSINOPHILS % 2.3 % (0.0-5.0); HEMATOCRIT. 27.1 % (36.0-48.0); HEMOGLOBIN. 8.4 g/dL (12.0-16.0); LYMPHOCYTES % 22.7 % (20.0-50.0); MEAN CORPUSCULAR HEMOGLOBIN 23.5 pg (28.0-32.0); MEAN CORPUSCULAR VOLUME 75.9 fL (81.0-99.0); MEAN PLATELET VOLUME 6.7 fl (7.4-10.4); MONOCYTES % 14.6 % (2.0-8.0); NEUTROPHILS % 60.1 % (40.0-76.0); PLATELET 754 x1000/uL (130-400); RED BLOOD CELL COUNT 3.57 mill/uL (4.2-5.4); RED CELL DISTRIBUTION WIDTH 17.3 % (11.6-14.6)
[2021-11-28] MEDS ORDERED: MAGNESIUM/ALUMINUM HYDROXIDE/SIMETHICONE 30ML UDC PO ONE (01:45)
[2021-11-28] MEDS: RISPERIDONE 1MG TABLET PO SCH ×2 (02:19→09:57)
[2021-11-28] MEDS ORDERED: ACETAMINOPHEN 325MG TABLET PO ONE (05:00)
[2021-11-28] MEDS: CEPHALEXIN 250MG CAPSULE PO STA ×2 (13:05→13:56)
[2021-11-29] MEDS: RISPERIDONE 1MG TABLET PO SCH ×2 (09:00→21:00)
[2021-11-29] MEDS ORDERED: CLONIDINE 0.1MG TABLET PO PRN (20:30)
[2021-11-29] MEDS ORDERED: ONDANSETRON HCL 4MG/2ML INJ IV PRN (20:30)
[2021-11-30] MEDS: RISPERIDONE 1MG TABLET PO SCH ×2 (08:40→20:30)
[2021-11-30] MEDS: ACETAMINOPHEN 325MG TABLET PO PRN ×2 (08:41→16:02)
[2021-11-30 12:58] LABS: BASOPHILS % 0.4 % (0.0-2.0); EOSINOPHILS % 1.7 % (0.0-5.0); HEMATOCRIT. 30.1 % (36.0-48.0); LYMPHOCYTES % 20.7 % (20.0-50.0); MEAN CORPUSCULAR HEMOGLOBIN 23.3 pg (28.0-32.0); MEAN CORPUSCULAR VOLUME 77.7 fL (81.0-99.0); MEAN PLATELET VOLUME 7.5 fl (7.4-10.4); MONOCYTES % 14.3 % (2.0-8.0); NEUTROPHILS % 62.9 % (40.0-76.0); PLATELET 687 x1000/uL (130-400); RED BLOOD CELL COUNT 3.87 mill/uL (4.2-5.4); RED CELL DISTRIBUTION WIDTH 17.4 % (11.6-14.6)
[2021-11-30 13:06] LABS: CHLORIDE 106 mEq/L (98-107)
[2021-11-30] MEDS: ENOXAPARIN 40MG/0.4ML SYR SUBCUT SCH (20:30)
[2021-12-01] MEDS: RISPERIDONE 1MG TABLET PO SCH ×2 (08:04→20:48)
[2021-12-01] MEDS: ENOXAPARIN 40MG/0.4ML SYR SUBCUT SCH (08:04)
[2021-12-02] MEDS: RISPERIDONE 1MG TABLET PO SCH (10:08)
[2021-12-02] MEDS: ENOXAPARIN 40MG/0.4ML SYR SUBCUT SCH (10:08)
[2021-12-02 10:35] VITALS: BP 120/56
[2021-12-02] MEDS: ACETAMINOPHEN 325MG TABLET PO PRN ×2 (11:56→19:30)
[2021-12-02 12:00] VITALS: BP 103/41
[2021-12-02] MEDS ORDERED: ASPIRIN 81MG TABLET PO SCH (12:15)
[2021-12-02 16:00] VITALS: BP 107/43
[2021-12-02 18:02] VITALS: BP 107/43
[2021-12-03] MEDS ORDERED: RISP2 PO (11:03)
[2022-01-03] MEDS ORDERED: PANT40TA51 MT (14:29)
== END 2021-12-02 19:50 | disposition home health service (06) | DRG 52 ==
LOC: ER 12:13 → MICUSO 11-24 12:10 → UNDOADMIN 11-24 12:10 → MICUSO 11-29 10:12 → EDBEDREQSVC 11-29 10:22 → EDBEDREQ 11-29 10:22 → MICUSO 12-02 11:11 → 6WST 12-02 11:11
PROVIDERS: ADMIT Internal Medicine; ATTEND Internal Medicine
DX: G93.41 Metabolic encephalopathy (principal); E44.1 Mild protein-calorie malnutrition; F03.90 Unspecified dementia, unspecified severity, without behavioral disturbance, psychotic disturbance, mood disturbance, and anxiety; D64.9 Anemia, unspecified; G89.4 Chronic pain syndrome; M16.11 Unilateral primary osteoarthritis, right hip; Z96.642 Presence of left artificial hip joint; R53.81 Other malaise; I10 Essential (primary) hypertension; E78.00 Pure hypercholesterolemia, unspecified; I48.91 Unspecified atrial fibrillation; F20.9 Schizophrenia, unspecified; J43.9 Emphysema, unspecified; Z20.822 Contact with and (suspected) exposure to COVID-19; Z88.8 Allergy status to other drugs, medicaments and biological substances; Z91.041 Radiographic dye allergy status; Z82.49 Family history of ischemic heart disease and other diseases of the circulatory system; Z87.891 Personal history of nicotine dependence; Z79.899 Other long term (current) drug therapy; Z83.3 Family history of diabetes mellitus; Z68.22 Body mass index [BMI] 22.0-22.9, adult
CPT/HCPCS: 20600; 36415; 80048; 80053; 80076; 80305; 80307; 80320; 80329; 81001; 82962; 84703; 85025; 87426; 96372; 99285; C9803; J1650; U0003; U0005; G0480

== ENCOUNTER 2022-01-14 16:58 | Inpatient (IN) | payer MEDICARE, MEDICAID ==
[~2022-01-14] VITALS: Ht 170.2 cm; Wt 65.8 kg
[~2022-01-14 16:58] MED LIST changes: -AMLO10TA4 PO; -ASCO500C6 PO; -CLAR10 PO; -CLIN-194 PO; -DIAZ10TA PO; -DOCU-138 PO; -ENOX40SY27 SUBCUT; -FERR-63 PO; -GABA-529 PO; -HYDR-523 PO; -LORA10TA7 PO; -LOSA50TA3 PO; -METO-385 PO; +PANT40TA51 MT; +RISP2 PO; -flexeril PO; -haldol PO
[2022-01-14] MEDS ORDERED: MORPHINE SULFATE 4 MG/ML CPJ (NOT FOR IM USE) IV STA (18:33)
[2022-01-14] MEDS ORDERED: SODIUM CHLORIDE 0.9% 1,000 ML IV ONE (18:45)
[2022-01-14 19:07] LABS: BASOPHILS % 0.4 % (0.0-2.0); EOSINOPHILS % 0.5 % (0.0-5.0); HEMATOCRIT. 30.6 % (36.0-48.0); HEMOGLOBIN. 9.5 g/dL (12.0-16.0); LYMPHOCYTES % 15.3 % (20.0-50.0); MEAN CORPUSCULAR HEMOGLOBIN 23.5 pg (28.0-32.0); MEAN PLATELET VOLUME 7.1 fl (7.4-10.4); MONOCYTES % 7.8 % (2.0-8.0); PLATELET 668 x1000/uL (130-400); RED BLOOD CELL COUNT 4.03 mill/uL (4.2-5.4)
[2022-01-14 19:14] LABS: CHLORIDE 103 mEq/L (98-107)
[2022-01-14 19:18] LABS: INR 1.2; PROTHROMBIN TIME 12.3 sec (9.6-11.0)
[2022-01-14] MEDS ORDERED: CEFTRIAXONE 1 G PREMIX 50 ML IV ONE (19:45)
[2022-01-14] MEDS ORDERED: METRONIDAZOLE 500 MG PREMIX 100 ML IV ONE (19:45)
[2022-01-14] MEDS ORDERED: VANCOMYCIN 1G PREMIX 200 ML IV SCH (19:45)
[2022-01-14] MEDS ORDERED: POTASSIUM CHLORIDE INJ 40 MEQ in DEXT 5% WATER 250 ML IV ONE (21:45)
[2022-01-15] MEDS: MORPHINE SULFATE 2 MG/ML CPJ (NOT FOR IM USE) IV PRN ×4 (03:45→20:17)
[2022-01-15] MEDS ORDERED: ONDANSETRON HCL 4MG/2ML INJ IV PRN (09:00)
[2022-01-15] MEDS ORDERED: ACETAMINOPHEN 325MG TABLET PO PRN (09:00)
[2022-01-15] MEDS ORDERED: PIPERACILLIN/TAZ 3.375G PREMIX 50 ML IV SCH (09:00)
[2022-01-15] MEDS ORDERED: CLONIDINE 0.1MG TABLET PO PRN (09:00)
[2022-01-15] MEDS: PANTOPRAZOLE SODIUM 40 MG/VIAL IV SCH (09:55)
[2022-01-15] MEDS: ENOXAPARIN 40MG/0.4ML SYR SUBCUT SCH (09:55)
[2022-01-15] MEDS: SODIUM CHLORIDE 0.9% 1,000 ML IV SCH ×2 (09:56→21:19)
[2022-01-15 12:00] VITALS: BP 155/71
[2022-01-15] MEDS ORDERED: VANCOMYCIN 1G PREMIX 200 ML IV SCH (12:00)
[2022-01-15 13:00] VITALS: BP 155/71
[2022-01-15] MEDS ORDERED: NALOXONE HCL 0.4MG/ML VIAL IV PRN (15:00)
[2022-01-15 16:00] VITALS: BP 159/80
[2022-01-15] MEDS: VANCOMYCIN 1G PREMIX 200 ML IV SCH (16:09)
[2022-01-15 20:00] VITALS: BP 152/81
[2022-01-15] MEDS: PIPERACILLIN/TAZOBACTAM 3.375G in DEXT 5% WATER 50ML IV SCH (21:18)
[2022-01-16] VITALS: BP 147/66
[2022-01-16] MEDS: RISPERIDONE 1MG TABLET PO SCH ×3 (00:32→09:15)
[2022-01-16] MEDS: MORPHINE SULFATE 2 MG/ML CPJ (NOT FOR IM USE) IV PRN ×6 (00:33→21:49)
[2022-01-16 04:00] VITALS: BP 129/59
[2022-01-16] MEDS: PIPERACILLIN/TAZOBACTAM 3.375G in DEXT 5% WATER 50ML IV SCH ×3 (05:22→21:55)
[2022-01-16 06:20] LABS: BASOPHILS % 0.2 % (0.0-2.0); EOSINOPHILS % 0.7 % (0.0-5.0); HEMOGLOBIN. 8.8 g/dL (12.0-16.0); LYMPHOCYTES % 13.6 % (20.0-50.0); MEAN CORPUSCULAR HEMOGLOBIN 23.6 pg (28.0-32.0); MEAN CORPUSCULAR VOLUME 75.5 fL (81.0-99.0); MEAN PLATELET VOLUME 7.2 fl (7.4-10.4); NEUTROPHILS % 77.5 % (40.0-76.0); PLATELET 612 x1000/uL (130-400); RED BLOOD CELL COUNT 3.71 mill/uL (4.2-5.4)
[2022-01-16 06:42] LABS: CHLORIDE 106 mEq/L (98-107)
[2022-01-16 08:00] VITALS: BP 153/63
[2022-01-16] MEDS: ENOXAPARIN 40MG/0.4ML SYR SUBCUT SCH (09:15)
[2022-01-16] MEDS: PANTOPRAZOLE SODIUM 40 MG/VIAL IV SCH (09:16)
[2022-01-16 12:00] VITALS: BP 149/67
[2022-01-16] MEDS: SODIUM CHLORIDE 0.9% 1,000 ML IV SCH (14:25)
[2022-01-16] MEDS: VANCOMYCIN 1G PREMIX 200 ML IV SCH (14:26)
[2022-01-16] MEDS ORDERED: POTASSIUM CHLORIDE INJ 30 MEQ in DEXT 5%/0.9% NACL 1,000 ML IV ONE (15:15)
[2022-01-16 16:00] VITALS: BP 151/67
[2022-01-16 20:00] VITALS: BP 138/60
[2022-01-16] MEDS: KCL 20MEQ/100ML X 2 FOR TOTAL KCL 40MEQ/200ML IV SCH ×2 (21:00→21:55)
[2022-01-17] VITALS: BP 140/64
[2022-01-17] MEDS: MORPHINE SULFATE 2 MG/ML CPJ (NOT FOR IM USE) IV PRN ×4 (03:32→17:54)
[2022-01-17 04:00] VITALS: BP 144/65
[2022-01-17] MEDS: VANCOMYCIN 1G PREMIX 200 ML IV SCH (04:15)
[2022-01-17] MEDS: KCL 20MEQ/100ML X 2 FOR TOTAL KCL 40MEQ/200ML IV SCH ×2 (04:15→04:16)
[2022-01-17 07:07] LABS: CHLORIDE 106 mEq/L (98-107)
[2022-01-17 08:00] VITALS: BP 104/53
[2022-01-17] MEDS: SODIUM CHLORIDE 0.9% 1,000 ML IV SCH ×2 (08:03→14:01)
[2022-01-17] MEDS: PIPERACILLIN/TAZOBACTAM 3.375G in DEXT 5% WATER 50ML IV SCH ×2 (08:03→13:59)
[2022-01-17] MEDS ORDERED: FAMOTIDINE 20MG/2ML VIAL IV SCH (09:00)
[2022-01-17] MEDS: RISPERIDONE 1MG TABLET PO SCH (09:13)
[2022-01-17] MEDS: ENOXAPARIN 40MG/0.4ML SYR SUBCUT SCH (09:14)
[2022-01-17] MEDS ORDERED: POTASSIUM CHLORIDE 20MEQ TABLET SR PO SCH (15:00)
[2022-01-17 15:50] VITALS: BP 104/53
[2022-01-17 16:00] VITALS: BP 164/58
[2022-01-17 17:54] VITALS: BP 164/58
[2022-01-17 18:40] LABS: BASOPHILS % 0.2 % (0.0-2.0); EOSINOPHILS % 0.2 % (0.0-5.0); HEMATOCRIT. 31.2 % (36.0-48.0); HEMOGLOBIN. 9.1 g/dL (12.0-16.0); LYMPHOCYTES % 12.8 % (20.0-50.0); MEAN CORPUSCULAR HEMOGLOBIN 23.3 pg (28.0-32.0); MEAN CORPUSCULAR VOLUME 79.8 fL (81.0-99.0); MEAN PLATELET VOLUME 7.4 fl (7.4-10.4); MONOCYTES % 9.5 % (2.0-8.0); NEUTROPHILS % 77.3 % (40.0-76.0); PLATELET 494 x1000/uL (130-400); RED BLOOD CELL COUNT 3.91 mill/uL (4.2-5.4); RED CELL DISTRIBUTION WIDTH 22.4 % (11.6-14.6)
[2022-01-17 18:51] LABS: CHLORIDE 109 mEq/L (98-107)
== END 2022-01-17 18:55 | disposition home or self-care (01) | DRG 249 ==
LOC: ER 16:58 → MICUSO 20:46 → 4WST 01-15 11:30
PROVIDERS: ADMIT Internal Medicine; ATTEND Internal Medicine
DX: R19.7 Diarrhea, unspecified (principal); D63.1 Anemia in chronic kidney disease; R65.10 Systemic inflammatory response syndrome (SIRS) of non-infectious origin without acute organ dysfunction; D75.839 Thrombocytosis, unspecified; G57.92 Unspecified mononeuropathy of left lower limb; F20.9 Schizophrenia, unspecified; I12.9 Hypertensive chronic kidney disease with stage 1 through stage 4 chronic kidney disease, or unspecified chronic kidney disease; N18.9 Chronic kidney disease, unspecified; J44.9 Chronic obstructive pulmonary disease, unspecified; E78.00 Pure hypercholesterolemia, unspecified; E87.6 Hypokalemia; D50.9 Iron deficiency anemia, unspecified; R26.9 Unspecified abnormalities of gait and mobility; Z96.642 Presence of left artificial hip joint; Z87.891 Personal history of nicotine dependence; Z87.11 Personal history of peptic ulcer disease
CPT/HCPCS: 36415; 74176; 80048; 80053; 83605; 83735; 84145; 85025; 97161; 99285; C9113; J0696; J1650; J2270; J2543; J3370; J3480; J3490; J7030; J7060

== ENCOUNTER 2023-02-10 20:24 | Emergency (ER) | payer MEDICARE, MEDICAID ==
[~2023-02-10] VITALS: Ht 157.5 cm; Wt 50.0 kg
[2023-02-10 20:25] VITALS: O2SAT 99
[2023-02-10] MEDS ORDERED: SODIUM CHLORIDE 0.9% 1,000 ML IV ONE (20:45)
[2023-02-10 21:09] LABS: BASOPHILS % 0.5 % (0.0-2.0); DIFFERENTIAL COMMENT 0; EOSINOPHILS % 1.9 % (0.0-5.0); HEMATOCRIT. 34.4 % (36.0-48.0); HEMOGLOBIN. 10.4 g/dL (12.0-16.0); MEAN CORPUSCULAR HEMOGLOBIN 24.2 pg (28.0-32.0); MEAN CORPUSCULAR HGB CONC 30.3 g/dL (31.0-37.0); MEAN CORPUSCULAR VOLUME 79.7 fL (81.0-99.0); MEAN PLATELET VOLUME 7.7 fl (7.4-10.4); MONOCYTES % 8.5 % (2.0-8.0); NEUTROPHILS % 52.1 % (40.0-76.0); PLATELET 493 x1000/uL (130-400); RED BLOOD CELL COUNT 4.31 mill/uL (4.2-5.4); RED CELL DISTRIBUTION WIDTH 20.4 % (11.6-14.6); WHITE BLOOD COUNT 7.4 x1000/uL (4.5-11.0)
[2023-02-10 21:15] LABS: CHLORIDE 112 mEq/L (98-107); INDEX HEMOLYSI 1 (1-3); INDEX ICTERIC 1 (1-4); INDEX LIPEMIC 1 (1-3); POTASSIUM 3.7 mEq/L (3.5-5.1); PROTHROMBIN TIME 11.2 sec (9.6-11.0); SODIUM 145 mEq/L (136-145)
[2023-02-10 21:22] LABS: ALANINE AMINOTRANSFERASE 10 IU/L (13-61); ALBUMIN 2.8 g/dL (3.4-5.0); ASPARTATE AMINOTRANSFERASE 7 IU/L (15-37); BILIRUBIN TOTAL 0.3 mg/dL (0.1-1.0); CALCIUM 8.6 mg/dL (8.5-10.1); CARBON DIOXIDE 28 mEq/L (21-32); CREATININE 0.4 mg/dL (0.6-1.3); GLUCOSE 90 mg/dL (70-105); PROTEIN TOTAL 7.1 g/dL (6.0-8.3); UREA NITROGEN BLOOD 9 mg/dL (7-21)
[2023-02-10 23:44] VITALS: BP 129/55; PULSE 18; RESP 18; TEMP 98.6
== END 2023-02-11 00:15 | disposition short-term general hospital (02) ==
LOC: ER 20:24
DX: R62.7 Adult failure to thrive (principal); R41.82 Altered mental status, unspecified; I10 Essential (primary) hypertension; E78.00 Pure hypercholesterolemia, unspecified; J44.1 Chronic obstructive pulmonary disease with (acute) exacerbation; Z91.041 Radiographic dye allergy status; Z88.5 Allergy status to narcotic agent; Z86.59 Personal history of other mental and behavioral disorders
CPT/HCPCS: 99285; 70450; 71045; 80053; 85025; 85610; 36415; J7030